=== PATIENT | male | born 1960 | race Caucasian/White ===

== ENCOUNTER 2016-04-16 09:52 | Emergency (ER) | payer OTHER ==
[2016-04-16 10:20] VITALS: BP 140/106; PULSE 59; RESP 20; TEMP 98.3; O2SAT 95
--- NOTE | 2016-04-16 10:43 | UCPHY ---
H & P Time Seen by Provider: 04/16/16 10:34 Patient Type: Established HPI/ROS: This patient presents with a chief complaint of right index finger laceration which occurred approximately 5 days ago when he cut with a knife. He is wondering if the injury requires revision in order to have a normal finger when the healing is complete. Smoking Status: Never smoked Physical Exam: This is a well-developed well-nourished male who is in no acute distress. He is alert, appropriate and has normal speech pattern and gait. Examination of the finger reveals a small laceration to the tip of the digit. The wound edges are minimally distracted less than a mm. There is no tenderness although there is some swelling distally. There is no evidence of infection including tenderness, proximal erythema or warmth. Constitutional: Initial Vital Signs Temperature (C) 36.8 C 04/16/16 10:05 Heart Rate 59 L 04/16/16 10:05 Respiratory Rate 20 04/16/16 10:05 Blood Pressure 140/106 H 04/16/16 10:05 O2 Sat (%) 95 04/16/16 10:05 O2 Delivery Mode Room Air Allergies/Adverse Reactions: No Known Allergies Allergy (Verified 04/16/16 10:20) Home Medications: Medication Instructions Recorded Aspirin 09/06/14 Lipitor 04/16/16 Medical Decision Making ED Course/Re-evaluation: A protective splint was applied Differential Diagnosis: I feel that this laceration will heal and will resolve any normal finger with possibly some minimal deformity. I do not believe that any revision is required. Departure - Departure Disposition: Home, Routine, Self-Care Clinical Impression: Finger laceration Qualifiers: Encounter type: initial encounter Qualifier Code: (S61.219A) Laceration without foreign body of unspecified finger without damage to nail, initial encounter Condition: Good Instructions: Laceration Without Closure (ED) Additional Instructions: This laceration should heal normally with minimal if any deformity. Avoid re- injury If you notice spreading redness, swelling, increasing pain and tenderness or marcel pus you should return immediately since these findings frequently indicate infection. It usually takes 3 days from the time of injury for an infection to begin. Referrals: Tiara Buchanan MD [Primary Care Provider] - As per Instructions - PQRS PQRS Measurement: Not applicable
== END 2016-04-16 10:45 | disposition home or self-care (01) ==
LOC: CED 09:52
DX: S61.210A Laceration without foreign body of right index finger without damage to nail, initial encounter (principal); W26.0XXA Contact with knife, initial encounter
CPT/HCPCS: 99213-PO; G0463-PO

== ENCOUNTER 2017-03-20 09:24 | Emergency (ER) | payer OTHER ==
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
--- NOTE | 2017-03-20 09:42 | CPEKG ---
Heart Rate: 41 RR Interval: 1463 P-R Interval: 220 QRSD Interval: 120 QT Interval: 480 QTC Interval: 397 P Thor: 22 QRS Thor: -30 T Wave Thor: 32 EKG Severity - ABNORMAL ECG - EKG Impression: SINUS BRADYCARDIA EKG Impression: FIRST DEGREE AV BLOCK EKG Impression: INCOMPLETE RBBB AND LAFB EKG Impression: PROBABLE LEFT VENTRICULAR HYPERTROPHY Electronically Signed By: Brayan Saeed 20-Mar-2017 10:30:31
[2017-03-20 10:20] LABS: PLATELET COUNT 223 10^3/uL (150-400)
[2017-03-20 11:18] VITALS: BP 165/72; PULSE 58; RESP 18; TEMP 98.2; O2SAT 98
== END 2017-03-20 11:18 | disposition home or self-care (01) ==
DX: I10 Essential (primary) hypertension (principal); R07.9 Chest pain, unspecified; Z95.5 Presence of coronary angioplasty implant and graft; Z79.82 Long term (current) use of aspirin